=== PATIENT | male | born 1950 | race Caucasian/White ===

== ENCOUNTER 2018-10-14 09:17 | Day surgery (SDC) ==
[2018-10-14] MEDS: TETRACAINE 0.5% UNIT-DOSE OP PRN ×3 (10:20→11:26)
[2018-10-14] MEDS: BETADINE OPTH PREP OP PRN ×2 (10:21→11:15)
[2018-10-14] MEDS: CYCLOGYL 2% OPTH OP PRN ×3 (10:22→10:32)
[2018-10-14 10:28] VITALS: TEMP 98.7
[2018-10-14] MEDS ORDERED: LIDOCAINE 1% 20 ML MDV ID STA (10:29)
[2018-10-14] MEDS ORDERED: DEX-MOXI-KETOR OPTH INJ 1/0.5/0.4 MG/ML IO ONE (10:29)
[2018-10-14] MEDS ORDERED: BSS WITH EPINEPHRINE OP ONE (10:29)
[2018-10-14] MEDS ORDERED: LIDOCAINE 1%/PHENYLEPHRINE 1.5% BSS (SURGERY) INTRAOCULA ONE (10:29)
[2018-10-14] MEDS ORDERED: ZOFRAN 4 MG/2 ML IVP ONE (10:29)
[2018-10-14] MEDS ORDERED: SUBLIMAZE ONE (11:18)
[2018-10-14] MEDS ORDERED: DIPRIVAN 20 ML VIAL IVP ONE (11:18)
[2018-10-14] MEDS ORDERED: TORADOL ONE (11:18)
[2018-10-14] MEDS ORDERED: DECADRON 4 MG/ML SDV ONE (11:18)
[2018-10-14] MEDS ORDERED: ZOFRAN 4 MG/2 ML ONE (11:18)
[2018-10-14] MEDS ORDERED: VERSED ONE (11:18)
[2018-10-14] MEDS ORDERED: MIOSTAT INTRAOCULA ONE (11:49)
[2018-10-16 09:05] VITALS: BP 132/57
== END 2018-10-14 12:30 | disposition home or self-care (01) ==
LOC: SURG 09:17
PROVIDERS: ATTEND Ophthalmology
DX: H25.812 Combined forms of age-related cataract, left eye (principal)

== ENCOUNTER 2018-10-30 08:52 | Day surgery (SDC) ==
[2018-10-30] MEDS: BETADINE OPTH PREP OP PRN ×2 (09:40→11:00)
[2018-10-30] MEDS: TETRACAINE 0.5% UNIT-DOSE OP PRN ×2 (09:40→11:00)
[2018-10-30] MEDS: CYCLOGYL 2% OPTH OP PRN ×3 (09:41→09:51)
[2018-10-30] MEDS ORDERED: DEX-MOXI-KETOR OPTH INJ 1/0.5/0.4 MG/ML IO ONE (09:58)
[2018-10-30] MEDS ORDERED: ZOFRAN 4 MG/2 ML IVP ONE (09:58)
[2018-10-30] MEDS ORDERED: BSS WITH EPINEPHRINE OP ONE (09:58)
[2018-10-30] MEDS ORDERED: LIDOCAINE 1%/PHENYLEPHRINE 1.5% BSS (SURGERY) INTRAOCULA ONE (09:58)
[2018-10-30] MEDS ORDERED: LIDOCAINE 1% 20 ML MDV ID STA (09:58)
[2018-10-30] MEDS ORDERED: ZOFRAN 4 MG/2 ML ONE (10:50)
[2018-10-30] MEDS ORDERED: SUBLIMAZE ONE (10:50)
[2018-10-30] MEDS ORDERED: VERSED ONE (10:50)
[2018-10-30 11:35] VITALS: BP 161/91
[2018-10-30 12:07] VITALS: TEMP 98
== END 2018-10-30 12:00 | disposition home or self-care (01) ==
LOC: SURG 08:52
PROVIDERS: ATTEND Ophthalmology
DX: H25.811 Combined forms of age-related cataract, right eye (principal)